=== PATIENT | male | born 1960 | race Caucasian/White ===

== ENCOUNTER 2017-08-09 11:41 | Emergency (ER) | payer BC, OTHER ==
[2017-08-09 11:45] VITALS: BP 160/75
[2017-08-09 12:27] LABS: INFLUENZA A PATIENT NEGATIVE (NEGATIVE); INFLUENZA B PATIENT NEGATIVE (NEGATIVE)
[2017-08-09] MEDS ORDERED: ALBU8.5H8 INH (12:51)
[2017-08-09] MEDS ORDERED: HYDR115S2 PO (12:51)
[2017-08-09] MEDS ORDERED: AMOX1TAB61 PO (12:51)
--- NOTE | 2017-08-09 12:51 | PHYS DOC ---
Past History Past Medical History: No Pertinent History Past Surgical History: No Surgical History Smoking: Cigarettes Alcohol Use: None Drug Use: None Adult General Chief Complaint Chief Complaint: FLU SYMPTOM [facility] HPI 57-year-old male patient complaining of nasal congestion and intermittent episodes of productive cough with yellow sputum and subjective fever with myalgia and decrease of appetite and activity for the last 5 days that gradually getting worse. Patient states he had temperature of 101 yesterday and took Tylenol or ibuprofen for his fever. Evaluation complaining of right-sided chest wall pain during episodes of cough that getting constant since yesterday as a constant sharp pain without radiation. Patient denies sick contact at home. Review of Systems Review of Systems Constitutional: A poor fever and chills[] Eyes: Denies change in visual acuity, redness, or eye pain [] HENT: Reports nasal congestion Respiratory: Reports cough and shortness of breath[] Cardiovascular: No additional information not addressed in HPI [] GI: Denies abdominal pain, nausea, vomiting, bloody stools, reports diarrhea [] : Denies dysuria or hematuria [] Musculoskeletal: Denies back pain or joint pain [] Integument: Denies rash or skin lesions [] Neurologic: Denies headache, focal weakness or sensory changes [] Endocrine: Denies polyuria or polydipsia [] All other systems were reviewed and found to be within normal limits, except as documented in this note. Allergies Allergies Allergies Coded Allergies Type Severity Reaction Last Updated Verified No Known Drug Allergies 08/24/14 No Physical Exam Physical Exam Constitutional: Well developed, well nourished, mild distress, non-toxic appearance. [] HENT: Normocephalic, atraumatic, bilateral external ears normal, pharyngeal erythema, oropharynx moist, no oral exudates, nose normal. [] Eyes: PERRLA, EOMI, conjunctiva normal, no discharge. [] Neck: Normal range of motion, no tenderness, supple, no stridor. [] Cardiovascular:Heart rate regular rhythm, no murmur [] Lungs & Thorax: Bilateral breath sounds clear to auscultation [] Abdomen: Bowel sounds normal, soft, no tenderness, no masses, no pulsatile masses. [] Skin: Warm, dry, no erythema, no rash. [] Back: No tenderness, no CVA tenderness. [] Extremities: No tenderness, no cyanosis, no clubbing, ROM intact, no edema. [] Neurologic: Alert and oriented X 3, normal motor function, normal sensory function, no focal deficits noted. [] Psychologic: Affect normal, judgement normal, mood normal. [] Current Patient Data Lab Results Laboratory Tests Test 08/09/17 11:50 Influenza Type A (Rapid) Negative (NEGATIVE) Influenza Type B (Rapid) Negative (NEGATIVE) EKG EKG [] Radiology/Procedures Radiology/Procedures [] Course & Med Decision Making Course & Med Decision Making Pertinent Labs studies reviewed. (See chart for details) evaluation of patient in ER showed 57-year-old smoker patient with complaining of productive cough and fever and nasal congestion for the last 5 days. Patient had temperature of 100.8 at arrival to ER that gradually decreased to 99.5 without hypotension or tachycardia. Flu test was negative. Patient did not want to have chest x-ray. Plan discharge patient home with diagnosis of bacterial upper respiratory infection. Patient instructed to quit smoking. [] Dragon Disclaimer Dragon Disclaimer This electronic medical record was generated, in whole or in part, using a voice recognition dictation system. Departure Departure: Impression: Primary Impression: Bacterial upper respiratory infection Additional Impressions: Fever Tobacco abuse Tobacco abuse counseling Disposition: HOME, SELF-CARE (At 1300) Condition: IMPROVED Referrals: RAINE ARCHER MD (PCP) Patient Instructions: Fever, Smoking Cessation, Upper Respiratory Infection, Adult Additional Instructions: Drink plenty of liquids Follow-up with your primary care physician in 3-5 days Return to ER if not getting better Scripts Hydrocodone/Chlorphen P-Stirex (Tussionex Pennkinetic Susp) 115 Ml Terra.er.12h 5 ML PO BID, #120 ML Prov: NAV HURST MD 08/09/17 Albuterol Sulfate (PROAIR HFA INHALER) 8.5 Gm Hfa.aer.ad 2 PUFF INH PRN Q6HRS Y for SHORTNESS OF BREATH, #1 INHALER 0 Refills Prov: NAV HURST MD 08/09/17 Amoxicillin/Potassium Clav (AUGMENTIN 875-125 TABLET) 1 Each Tablet 1 TAB PO BID, #14 TAB Prov: NAV HURST MD 08/09/17 Problem Qualifiers NAV HURST MD Aug 09, 2017 12:51
[2017-08-09] MEDS ORDERED: IBUPROFEN 400 MG TABLET. PO ONE (13:15)
== END 2017-08-09 13:00 | disposition home or self-care (01) ==
LOC: ER 11:41
DX: J06.9 Acute upper respiratory infection, unspecified (principal); F17.210 Nicotine dependence, cigarettes, uncomplicated; Z71.6 Tobacco abuse counseling
CPT/HCPCS: 87804; 99284